=== PATIENT | female | born 1950 | race Caucasian/White ===

== ENCOUNTER 2016-08-05 03:57 | Observation (INO) | payer BC, MEDICARE ==
[2016-08-05] MEDS ORDERED: ASPIRIN 81 MG CHEW PO STA (04:18)
[2016-08-05] MEDS: NITROGLYCERIN SL TABS 0.4 MG TAB SUBLINGUAL STA ×2 (04:28→04:37)
[2016-08-05 04:31] LABS: Basophils % (A) 1 %; CH 33.6; CHCM 37.1; Eosinophils # (A) 0.3 k/uL (0-0.7); Eosinophils % (A) 6 %; HCT 41.8 % (34.0-46.0); HDW 2.96; HGB 14.8 gm/dL (11.4-16.0); Luc # (Auto) 0.16; Luc % (Auto) 4; Lymphocytes # (A) 1.9 k/uL (1.0-4.8); Lymphocytes % (A) 44 %; MCH 32.1 pg (25.0-35.0); MCHC 35.3 g/dL (31.0-37.0); MCV 90.9 fL (80.0-100.0); Mean Platelet Volume 7.3; Monocytes # (A) 0.3 k/uL (0-1.0); Monocytes % (A) 7 %; Neutrophils # (A) 1.6 k/uL (1.3-7.7); Neutrophils % (A) 38 %; RBC 4.59 m/uL (3.80-5.40); RDW 13.1 % (11.5-15.5); WBC 4.3 k/uL (3.8-10.6); WBC (Perox) 4.23
[2016-08-05 04:40] LABS: ALT 32 U/L (9-52); AST 24 U/L (14-36); Alkaline Phosphatase 120 U/L (38-126); Amylase 78 U/L (30-110); Anion Gap 9 mmol/L; Blood Urea Nitrogen 24 mg/dL (7-17); Calcium 9.3 mg/dL (8.4-10.2); Carbon Dioxide 24 mmol/L (22-30); Chloride 109 mmol/L (98-107); Glucose 94 mg/dL (74-99); Magnesium 2.1 mg/dL (1.6-2.3); Non-African American GFR(MDRD) >60 (>60 ml/min/1.73 sqM); Potassium 3.7 mmol/L (3.5-5.1); Sodium 142 mmol/L (137-145); Total Bilirubin 0.5 mg/dL (0.2-1.3); Total Protein 6.5 g/dL (6.3-8.2)
[2016-08-05 04:43] LABS: INR 1.1 (<1.1)
[2016-08-05 04:44] LABS: Partial Thromboplastin Time 23.1 sec (22.0-30.0); Prothrombin Time 10.7 sec (9.0-12.0)
--- NOTE | 2016-08-05 04:55 | ED ---
Chest Pain HPI - General Chief Complaint: Chest Pain Stated Complaint: chest pain Time Seen by Provider: 08/05/16 04:00 Source: patient, EMS, RN notes reviewed Mode of arrival: EMS Limitations: no limitations - History of Present Illness Initial Comments: This is a 66-year-old female who states she had the onset 2 days ago of midsternal burning and pressure-like discomfort that was intermittent now seems be getting worse she currently states she has 5/10 pain she states it was getting worse when she laid on the right side she denies any fevers chills nausea vomiting sweats or other symptoms with it. She has no prior history of known heart or lung disease. She does not think she is ever had an ulcer. She does states she took aspirin yesterday but none today. She has no other complaints at this time. MD Complaint: chest pain, other - Related Data Allergies Allergy/AdvReac Type Severity Reaction Status Date / Time adhesive tape Allergy Rash/Hives Verified 08/05/16 04:02 Review of Systems ROS Statement: Those systems with pertinent positive or pertinent negative responses have been documented in the HPI. ROS Other: All systems not noted in ROS Statement are negative. EKG Findings - EKG Results: EKG: interpreted by DAY, sinus rhythm (EKG shows normal sinus rhythm of 74 CO interval 146 QRS duration 72 QT/QTC of 420/[address]-T wave configuration.) Past Medical History Past Medical History: Hypertension History of Any Multi-Drug Resistant Organisms: None Reported Past Surgical History: Orthopedic Surgery, Tubal Ligation Past Psychological History: No Psychological Hx Reported Smoking Status: Never smoker Past Alcohol Use History: None Reported Past Drug Use History: None Reported General Exam - General Exam Comments Initial Comments: This is a well-developed well-nourished awake alert oriented 3 female Limitations: no limitations General appearance: alert, in no apparent distress Head exam: Present: atraumatic, normocephalic, normal inspection Eye exam: Present: normal appearance, PERRL, EOMI. Absent: scleral icterus, conjunctival injection, periorbital swelling ENT exam: Present: normal exam, mucous membranes moist Neck exam: Present: normal inspection. Absent: tenderness, meningismus, lymphadenopathy Respiratory exam: Present: normal lung sounds bilaterally, chest wall tenderness. Absent: respiratory distress, wheezes, rales, rhonchi, stridor Cardiovascular Exam: Present: regular rate, normal rhythm, normal heart sounds. Absent: systolic murmur, diastolic murmur, rubs, gallop, clicks GI/Abdominal exam: Present: soft, normal bowel sounds. Absent: distended, tenderness, guarding, rebound, rigid Extremities exam: Present: normal inspection, full ROM, normal capillary refill. Absent: tenderness, pedal edema, joint swelling, calf tenderness Back exam: Present: normal inspection Neurological exam: Present: alert, oriented X3, CN II-XII intact Psychiatric exam: Present: normal affect, normal mood Skin exam: Present: warm, dry, intact, normal color. Absent: rash Course Vital Signs 08/05/16 08/05/16 08/05/16 04:02 04:28 04:36 Temperature 97.6 F Pulse Rate 73 71 69 Respiratory 16 18 18 Rate Blood Pressure 167/88 150/77 133/73 O2 Sat by Pulse 97 96 96 Oximetry 08/05/16 08/05/16 04:43 05:55 Temperature 97.5 F L Pulse Rate 65 60 Respiratory 18 19 Rate Blood Pressure 123/74 122/71 O2 Sat by Pulse 96 96 Oximetry - Reevaluation(s) Reevaluation #1: 08/05/16 06:44 Patient did get relief of the pain after oxygen and nitroglycerin were administered. Chest Pain MDM - MDM I did review the x-ray report no acute findings I did discuss the findings with the patient and family as well as with the admitting physician. The presentation is consistent with unstable angina. Patient be placed on IV heparin nitro admission orders were done. Patient be consulted Critical Care Time Critical Care Time: Yes Critical Care Time: 31 minutes of critical care time which includes initial presentation with history physical labs x-rays reevaluation the patient response to therapy. Discussed with patient and attending physician admission orders documentation the above. Disposition Clinical Impression: Unstable angina pectoris, Chest pain Disposition: ADMITTED IP TO THIS [facility] Condition: Stable
[2016-08-05 05:09] LABS: Creatine Kinase 49 U/L (30-135)
--- NOTE | 2016-08-05 05:20 | XR ---
EXAM: XR Chest, 2 Views. CLINICAL HISTORY: Reason: Chest Pain TECHNIQUE: Frontal and lateral views of the chest. COMPARISON: No relevant prior studies available. FINDINGS: Lungs: Unremarkable. No consolidation. Pleural space: Unremarkable. No pneumothorax. Heart: Unremarkable. No cardiomegaly. Mediastinum: Unremarkable. Bones/joints: Mild degenerative changes throughout. Tubes, lines and devices: Multiple EKG wires and leads overlie the chest. Upper abdomen: Mild anterior elevation or eventration of both diaphragms. IMPRESSION: No acute process seen within the chest.
[2016-08-05 05:22] LABS: Creatine Kinase MB 0.6 ng/mL (0.0-2.4); Troponin I <0.012 ng/mL (0.000-0.034)
[2016-08-05] MEDS ORDERED: HEPARIN SODIUM,PORCINE 5,000 UNIT/ML 1 ML VIAL IV ONE (06:46)
[2016-08-05] MEDS ORDERED: NITROGLYCERIN SL TABS 0.4 MG TAB SUBLINGUAL PRN (06:46)
[2016-08-05] MEDS ORDERED: SODIUM CHLORIDE 0.9% 1,000 ML IV SCH (07:00)
[2016-08-05] MEDS ORDERED: HEPARIN SODIUM,PORCINE/D5W PMX 25,000 UNIT in DEXTROSE/WATER 1 500ML.BAG IV SCH (07:00)
--- NOTE | 2016-08-05 09:10 | P.CRDCN ---
History of Present Illness Consult date: 08/05/16 History of present illness: This is Dr. Benjamin dictating a consultation on Mrs. Elizabeth. This is a 66- year-old female otherwise healthy person who has been experiencing some tight feeling in the chest intermittently for the last couple of days. The pain seemed to be more so at night. The night before admission patient took Mylanta with relief and was able to go to sleep. Last night patient could not go to sleep and came to the emergency room. Apparently she was treated with sublingual nitroglycerin with relief of pain. Patient is very comfortable this morning. Her EKG did not reveal any acute changes. Cardiac enzymes have been negative. Patient doesn't have any previous cardiac history. She did have a stress test in 2014 that was negative. Patient is being scheduled for a stress Cardiolite study this morning. Patient is also known to have echocardiogram. Patient can be discharged home with a stress test is negative. Follow-up in the office Review of Systems REVIEW OF SYSTEMS: CONSTITUTIONAL:. Patient is doing well. No complaints of fever or chills EYES: Denies diplopia, blurring of vision EARS, NOSE, MOUTH, THROAT: Denies headaches, denies sore throat. CARDIOVASCULAR: As per the chart RESPIRATORY: Denies shortness of breath, denies cough. GASTROINTESTINAL: Denies change in appetite, denies abdominal pain, denies diarrhea GENITOURINARY: Denies hematuria, denies infections. MUSKULOSKELETAL: Denies pain, denies swelling. Denies any cramps or claudication INTEGUMENTARY: Denies rash, denies eczema. NEUROLOGICAL: Denies focal weakness, or visual disturbance. Denies any dizziness or syncope PSYCHIATRIC: Denies anxiety, denies depression. HEMATOLOGIC/LYMPHATIC: Denies any bleeding, denies enlarged lymph nodes. Past Medical History Past Medical History: GERD/Reflux, Hypertension, Osteoarthritis (OA) Additional Past Medical History / Comment(s): Arthritis in neck, back and hands , difficulty with sleep. History of Any Multi-Drug Resistant Organisms: None Reported Past Surgical History: Orthopedic Surgery, Tubal Ligation Additional Past Surgical History / Comment(s): Bilateral carpal tunnel releases , R little toe bone removed, colonoscopy-normal, D&Cs. Past Anesthesia/Blood Transfusion Reactions: No Reported Reaction Past Psychological History: No Psychological Hx Reported Additional Psychological History / Comment(s): Pt resides with her spouse. She is independent. Smoking Status: Never smoker Past Alcohol Use History: None Reported Past Drug Use History: None Reported - Past Family History Father Family Medical History: Congestive Heart Failure (CHF), Hypertension Additional Family Medical History / Comment(s): Father of CHF at the age of 69yrs. Mother Family Medical History: Cancer, Hypertension Additional Family Medical History / Comment(s): Mother of pancreatic cancer at the age of 67yrs. Medications and Allergies Home Medications Medication Instructions Recorded Confirmed Type Ascorbic Acid [Vitamin C] 500 mg PO AC-LUNCH 08/05/16 08/05/16 History Biotin 5 mg PO AC-LUNCH 08/05/16 08/05/16 History Calcium/Magnesium/Zinc 1 tab PO AC-LUNCH 08/05/16 08/05/16 History [Frdxfrv-Qwoxnhgkj-Wsav Tablet] Cholecalciferol [Vitamin D3] 1,000 unit PO AC-LUNCH 08/05/16 08/05/16 History Furosemide [Lasix] 20 mg PO DAILY 08/05/16 08/05/16 History Ibuprofen [Motrin] 800 mg PO TID PRN 08/05/16 08/05/16 History Losartan Potassium [Losartan 100 mg PO DAILY 08/05/16 08/05/16 History Potassium] Metoprolol Tartrate [Metoprolol 25 mg PO DAILY 08/05/16 08/05/16 History Tartrate] Multivitamins, Thera [Multivitamin 1 tab PO DAILY 08/05/16 08/05/16 History (formulary)] Ubidecarenone [Co Q-10] 100 mg PO AC-LUNCH 08/05/16 08/05/16 History Vitamin B Complex 1 cap PO AC-LUNCH 08/05/16 08/05/16 History Allergies Allergy/AdvReac Type Severity Reaction Status Date / Time adhesive tape Allergy Rash/Hives Verified 08/05/16 06:58 Physical Exam GENERAL EXAM: Patient is alert and oriented and doesn't appear to be in any acute distress HEENT: Normocephalic. Normal reaction of pupils, equal size, normal range of extraocular motion. No erythema or exudates in the throat. NECK: No masses, no nuchal rigidity. CHEST: No chest wall deformity. LUNGS: Equal air entry with no crackles or wheeze. HEART: S1 and S2 normal with no audible mumurs or gallops. Regular rhythm, femorals equal on both sides.. ABDOMEN: No hepatosplenomegaly, normal bowel sounds, no guarding or rigidity. SKIN: No rashes CENTRAL NERVOUS SYSTEM: No focal deficits. EXTREMITIES: No cyanosis, clubbing or edema. Results 08/05/16 04:20 08/05/16 04:20 Current Medications Generic Name Dose Route Start Last Admin Trade Name Freq PRN Reason Stop Dose Admin Aspirin 325 mg 08/06/16 09:00 Aspirin PO DAILY [facility] Heparin Sodium/Dextrose 25,000 500 mls @ 15.78 mls/hr 08/05/16 07:00 07:15 unit/ IV Solution IV 12.01 units/kg/hr .Q24H BARB 15.8 mls/hr Protocol Administration 12 UNITS/KG/HR Sodium Chloride 1,000 mls @ 20 mls/hr 08/05/16 07:00 08/05/16 07:15 Saline 0.9% IV 20 mls/hr .Q24H BARB Administration Nitroglycerin 1 inch 08/05/16 12:00 Nitro-Bid Oint TOPICAL Q6HR [facility] Nitroglycerin 0.4 mg 08/05/16 06:46 Nitrostat SUBLINGUAL Q5M PRN Chest Pain EKG Interpretations (text) Sinus rhythm Assessment and Plan (1) Hypertension Status: Acute (2) Chest pain Status: Acute Plan: Patient has recurrent chest pains with negative enzymes and EKGs. This morning patient is feeling better. We'll proceed with a stress Cardilate studies and echocardiogram. Further comminution depend upon the findings on the stress test
[2016-08-05 09:24] VITALS: RESP 16
--- NOTE | 2016-08-05 11:32 | EST ---
DATE OF SERVICE: 08/05/2016 AGE: 66Y SEX: F HT: 58" WT: 145 lbs. Protocol Patrick: X Other: Cardiolite Stress Stage: 2 Dur. of Exercise: 8:00 *Heart Rate Blood Pressure *Rest: 76 Rest: 164/68 * *Max. Achieved: 138 Maximum BP: 184/83 85% PMHR: 130 100% PMHR: 153 *METS: 9.1 INDICATIONS: Chest pain. MEDICATIONS: - CLINICAL INFORMATION: Patient admitted to the hospital with chest pain, hypertension and strong family history of coronary artery disease. Patient has been having chest pressure. Resting ECG shows sinus rhythm, rate of 76 beats per minute, ND interval of 0.16, QRS 0.08, normal ST-T waves. Utilizing a standard Patrick protocol, a symptom-limited treadmill test was performed. Patient exercised for total of 8 minutes reaching a peak heart of 138 beats per minute which is approximately 90% predicted maximal heart rate without any chest pain or pressure or ST-segment deviations indicative of ischemia. Patient did not report any symptoms throughout the study and no cardiac arrhythmias are noted. IMPRESSION: 1. Baseline rhythm is sinus with normal ND interval, normal QRS and normal ST-T waves. 2. Negative exercise treadmill test at 90% predicted maximal heart rate. 3. Nuclear scintigrams to follow from Radiology Department.
--- NOTE | 2016-08-05 11:39 | NM ---
EXAMINATION TYPE: NM stress cardiolite complete DATE OF EXAM: 08/05/2016 11:01 AM COMPARISON: Previous exam dated December 2014 HISTORY: Chest pain TECHNIQUE: After the intravenous administration of 10.4 mCi Tc 99m Sestamibi - Rest images obtained 40 minutes post injection. The patient exercised using a ISSA protocol and 1 minute prior to peak exercise was injected with 26.7 mCi Tc 99m Sestamibi - Stress images obtained 15 minutes post injecti on. FINDINGS: Targeted heart rate was achieved during performance of the study. Review of stress and rest SPECT katerin ges demonstrates no distinct perfusion abnormality. Gated analysis shows normal wall motion with an estimated left ventricular ejection fraction of 49 %. IMPRESSION: No scintigraphic evidence for reversible ischemia. Interval change in patient's cardiac ejection frac tion.
[2016-08-05] MEDS ORDERED: NITROGLYCERIN OINT 1 INCH/GM PACKET TOPICAL SCH (12:00)
--- NOTE | 2016-08-05 12:10 | ECHOF ---
Referral Reason:Chest pain and cardiomyopathy MEASUREMENTS -------- HEIGHT: 147.3 cm WEIGHT: 65.8 kg BP: 122/71 RVIDd: 2.3 cm (< 3.3) IVSd: 1.0 cm (0.6 - 1.1) LVIDd: 3.9 cm (3.9 - 5.3) LVPWd: 1.0 cm (0.6 - 1.1) IVSs: 1.5 cm LVIDs: 2.7 cm LVPWs: 1.4 cm LA Diam: 3.0 cm (2.7 - 3.8) LAESV Index (A-L): 15.55 ml/m Ao Diam: 2.7 cm (2.0 - 3.7) AV Cusp: 1.7 cm (1.5 - 2.6) MV EXCURSION: 12.408 mm (> 18.000) MV EF SLOPE: 42 mm/s (70 - 150) EPSS: 0.3 cm MV E Octavio: 0.88 m/s MV DecT: 231 ms MV A Octavio: 1.06 m/s MV E/A Ratio: 0.84 FINDINGS -------- Sinus rhythm. This was a technically adequate study. The left ventricular size is normal. Left ventricular wall thickness is normal. Overall left ventricular systolic function is normal with, an EF between 60 - 65 %. The right ventricle is normal in size and function. Normal LA size by volume 22+/-6 ml/m2. The right atrium is normal in size. The aortic valve is trileaflet and appears structurally normal. The mitral valve is normal. Trace tricuspid regurgitation present. The pulmonic valve was not well visualized. The aortic root size is normal. Normal inferior vena cava with normal inspiratory collapse consistent with estimated right atrial pressure of 5 mmHg. There is no pericardial effusion. CONCLUSIONS -------- 1. Sinus rhythm. 2. The mitral valve is normal. 3. Trace tricuspid regurgitation present. 4. The pulmonic valve was not well visualized. 5. The aortic root size is normal. 6. Normal inferior vena cava with normal inspiratory collapse consistent with estimated right atrial pressure of 5 mmHg. 7. There is no pericardial effusion. 8. This was a technically adequate study. 9. The left ventricular size is normal. 10. Left ventricular wall thickness is normal. 11. Overall left ventricular systolic function is normal with, an EF between 60 - 65 %. 12. The right ventricle is normal in size and function. 13. Normal LA size by volume 22+/-6 ml/m2. 14. The right atrium is normal in size. 15. The aortic valve is trileaflet and appears structurally normal. DRAWER IN HAND: Fariba Cantu RDCS
[2016-08-05 12:12] LABS: Creatine Kinase 51 U/L (30-135)
[2016-08-05 12:26] LABS: Creatine Kinase MB 0.6 ng/mL (0.0-2.4); Troponin I <0.012 ng/mL (0.000-0.034)
[2016-08-05 12:46] VITALS: BP 146/73; PULSE 68; TEMP 98.7
--- NOTE | 2016-08-05 15:03 | HP ---
DATE OF ADMISSION: 08/05/2016 PRESENTING COMPLAINT: Burning pressure. HISTORY OF PRESENTING COMPLAINT: This is a very pleasant 66-year-old patient of Dr. De La Cruz whose chronic stable medical conditions include GERD, hypertension, osteoarthritis, difficulty sleeping, has been having pressure like a burning sensation in the chest and also like a deep pressure at rest for variable periods of time. There is no shortness of breath. No perspiration, no dizziness. No radiation, concern for a cardiac cause. Admitted with a diagnosis of unstable angina. REVIEW OF SYSTEMS: CONSTITUTIONAL: None. HEENT: None. RESPIRATORY: None. CARDIOVASCULAR: As above. GASTROINTESTINAL: Heartburn. The above symptoms do feel different than heartburn. GENITOURINARY: None. MUSCULOSKELETAL: Pain in multiple joints. DERMATOLOGICAL: None. HEMATOLOGICAL: None. LYMPHATIC: None. PSYCHIATRY: None. NEUROLOGICAL: None. PAST HISTORY: GERD, hypertension, osteoarthritis especially neck, back and hands, insomnia. PAST SURGICAL HISTORY: Tubal ligation, bilateral carpal tunnel release. SOCIAL HISTORY: . Does not smoke. No alcohol. FAMILY HISTORY: Father of CHF at the age of 69, hypertension. HOME MEDICATIONS: 1. Vitamin B complex 1 capsule p.o. at lunch. 2. Motrin 800 mg t.i.d. p.r.n. 3. Biotin 5 mg p.o. with lunch. 4. Co Q-10 one hundred mg p.o. with lunch. 5. Calcium/magnesium/zinc supplement. 6. Lasix 20 mg daily. 7. Vitamin C 500 mg with lunch. 8. Metoprolol 25 mg p.o. daily. 9. Losartan 100 mg p.o. daily. 10. Vitamin D3 one thousand units p.o. with lunch. Allergies to ADHESIVE TAPE. On examination, temperature 98.2, pulse 62, respirations 16, blood pressure 140/86, pulse ox 97% on room air. GENERAL APPEARANCE: Well built, BMI of 31, sitting on the chair, not in distress. EYES: Pupils equal, conjunctivae normal. HEENT: Oral cavity normal. NECK: JVD not raised. Mass not palpable. Respiratory effort normal. Lungs are clear. CARDIOVASCULAR: First and second sounds normal. No edema. ABDOMEN: Soft, nontender. Liver and spleen not palpable. LYMPHATIC: No lymph node palpable in neck or axillae. PSYCHIATRY: Alert and oriented x3. Mood and affect normal. NEUROLOGICAL: Cranial nerves grossly intact. Power and sensation grossly intact. MUSCULOSKELETAL: ( ) especially in the hands and knees. INVESTIGATIONS: White count 4.3, hemoglobin 14.8, potassium 3.7. BUN 24, creatinine 0.80, troponin x2 are negative. EKG normal sinus rhythm, nonspecific ST-T changes. ASSESSMENT: 1. Possible unstable angina, risk factor is due to hypertension, age. 2. Gastroesophageal reflux disease. 3. Primary osteoarthritis of multiple joints, bilaterally. 4. Essential hypertension. 5. Chronic insomnia, idiopathic. 6. Obesity, body mass index of 31.4. PLAN: Patient started on aspirin, IV heparin, nitro paste. Cardiology was consulted, ordered a stress test. Care was discussed with the patient.
[2016-08-06] MEDS ORDERED: ASPIRIN 325 MG TAB PO SCH (09:00)
--- NOTE | 2016-08-09 20:30 | DS ---
DATE OF ADMISSION: 08/05/2016 DATE OF DISCHARGE: 08/05/2016 FINAL DIAGNOSIS(ES): 1. Possible unstable angina, risk factors including hypertension and age. 2. Gastroesophageal reflux disease. 3. Primary osteoarthritis in multiple joints bilaterally. 4. Essential hypertension. 5. Chronic insomnia, idiopathic. 6. Obesity, body mass index of 31.4. CONSULTATION: Dr. Benjamin from Cardiology. HOSPITAL COURSE: This patient presented with chest burning sensation. Patient had a Cardiolite stress test that was unremarkable. 2-D echo showed preserved LV function and troponin was negative. Because of presentation, patient has been put on Imdur. DISCHARGE MEDICATIONS: 1. Vitamin C 500 mg at lunch. 2. Biotin 5 mg at lunch. 3. Calcium, magnesium, zinc 1 tablet p.o. with lunch. 4. Lasix 20 mg p.o. daily. 5. Imdur ER 30 mg p.o. daily. 6. Losartan 100 mg p.o. q.h.s. 7. Metoprolol 25 mg p.o. daily. 8. Multivitamin 1 tablet p.o. daily. 9. Nitrostat 0.4 sublingual q.5 p.r.n. 10. Prilosec 20 mg with breakfast. 11. CoQ10 100 mg p.o. with lunch. 12. Vitamin B complex 1 capsule p.o. with lunch. Follow-up with Dr. De La Cruz in 1 to 2 days, follow-up with Dr. Benjamin on 08/19/2016. LUNGS: Clear. CARDIOVASCULAR: First and second sounds normal.
== END 2016-08-05 15:50 | disposition home or self-care (01) ==
LOC: EC 03:57 → 3OBS 06:48
PROVIDERS: ADMIT Hospitalist; ATTEND Hospitalist
DX: R07.9 Chest pain, unspecified (principal); I10 Essential (primary) hypertension; K21.9 Gastro-esophageal reflux disease without esophagitis; M15.9 Polyosteoarthritis, unspecified; E66.9 Obesity, unspecified; Z68.31 Body mass index [BMI] 31.0-31.9, adult; F51.04 Psychophysiologic insomnia; Z79.899 Other long term (current) drug therapy
CPT/HCPCS: 96376 ×2; 99291 ×2; 36415; 93005; 93017; 93306; 85379; 83880; 80053; 82150; 82550; 82553; 83690; 83735; 84484; 85025; 85610; 85730; 71020; 78452; 96374; G0378; A9500; J1644 ×2

== ENCOUNTER → 2017-02-24 | Outpatient (CLI) | payer BC ==
--- NOTE | 2017-02-28 09:02 | MM ---
Reason for exam: screening (asymptomatic). Last mammogram was performed 1 year and 1 month ago. History: Patient is postmenopausal. Physical Findings: A clinical breast exam by your physician is recommended on an annual basis and results should be correlated with mammographic findings. MG Screening Mammo w CAD Bilateral CC and MLO view(s) were taken. Prior study comparison: February 03, 2016, bilateral MG 3d screening mammo w/cad. January 31, 2015, bilateral MG screening mammo w CAD. The breast tissue is heterogeneously dense. This may lower the sensitivity of mammography. No suspicious abnormality. No significant changes when compared with prior studies. ASSESSMENT: Negative, BI-RAD 1 RECOMMENDATION: Routine screening mammogram of both breasts in 1 year.
== END | disposition home or self-care (01) ==
LOC: RADMAMWWP 15:52
PROVIDERS: ATTEND Family Medicine
DX: Z12.31 Encounter for screening mammogram for malignant neoplasm of breast (principal)

== ENCOUNTER → 2018-02-01 | Outpatient (CLI) | payer BC ==
--- NOTE | 2018-02-01 15:02 | US ---
EXAMINATION TYPE: US pelvic complete DATE OF EXAM: 02/01/2018 COMPARISON: NONE CLINICAL HISTORY: Pelvic Pain R10.2. Left pelvic pain, 4, para 3, miscarriage 1, history of t ubal ligation. TECHNIQUE: . Transabdominal sonographic images of the pelvis were acquired. Transvaginal sonographi c images were medically necessary to better assess the following anatomy: endometrium and ovaries Date of LMP: 10 years ago EXAM MEASUREMENTS: Uterus: 8.4 x 2.7 x 4.3 cm Endometrial Stripe: 0.5 cm Right Ovary: not seen Left Ovary: not seen 1. Uterus: anteverted, heterogeneous, 0.7 x 0.6 x 0.8cm calcified area fundus 2. Endometrium: wnl 3. Right Ovary: not seen due to overlying bowel gas 4. Left Ovary: not seen due to overlying bowel gas 5. Bilateral Adnexa: wnl 6. Posterior cul-de-sac: wnl Markedly heterogeneous uterus with fundal 8 mm calcification favor dystrophic. Endometrium not well i dentified suspected atrophic. No free fluid in pelvic cul-de-sac. Neither ovary clearly seen. No suspicious adnexal lesions are present on images saved. IMPRESSION: No suspicious abnormality identified.
== END ==
LOC: RADUSWWP 13:01
PROVIDERS: ATTEND Family Medicine
DX: R10.32 Left lower quadrant pain (principal)
CPT/HCPCS: 76830; 76856

== ENCOUNTER → 2018-03-01 | Outpatient (CLI) | payer BC ==
--- NOTE | 2018-03-02 10:36 | CT ---
EXAMINATION TYPE: CT abdomen pelvis w con DATE OF EXAM: 03/01/2018 HISTORY: LLQ pain and hematuria X [address] DLP: 1056mGycm Automated Exposure Control for Dose Reduction was Utilized. CONTRAST: CT scan of the abdomen and pelvis is performed with IV Contrast, patient injected with 100 mL of Isov ue 300. COMPARISON: None. FINDINGS: LUNG BASES: Multiple areas of pleural-parenchymal scarring are seen on the right. Few areas of very m ild pleural thickening are also seen posteriorly on the right. LIVER/GB: Liver is unremarkable in enhancement. No intrahepatic biliary ductal dilatation. No choleli thiasis. PANCREAS: No significant abnormality is seen. No ductal dilatation. SPLEEN: No significant abnormality is seen. No splenomegaly. ADRENALS: No nodule or thickening. KIDNEYS: There is moderate left-sided hydroureteronephrosis secondary to a 5 mm proximal obstructing left ureteral calculus. The kidneys enhance symmetrically and there is no current alteration of renal function. This calculus is at the level of the L2-L3 disc interspace. Too small to accurately characterize bilateral lower pole renal lesions that are hypoattenuated are s een, statistically cysts although again too small to characterize. BOWEL: Mild amount retained colonic stool is seen limiting evaluation of bowel as does lack of oral c ontrast. Appendix is air-filled and within normal limits of size. UTERUS/ADNEXA: Calcified degenerative uterine leiomyoma is noted. LYMPH NODES: No greater than 1cm abdominal or pelvic lymph nodes are appreciated. OSSEOUS STRUCTURES: Multilevel degenerative change of the spine is present IMPRESSION: 5 mm obstructing calculus within the proximal left ureter creating moderate left hydrour eteronephrosis. Findings were communicated with the ordering providers office ([place]) by Dr. Penny on 03/02/2018 at 10:29 AM.
== END | disposition home or self-care (01) ==
LOC: RADCTMAIN 16:39
PROVIDERS: ATTEND Physician Assistant
DX: N13.2 Hydronephrosis with renal and ureteral calculous obstruction (principal)
CPT/HCPCS: 74177; Q9967

== ENCOUNTER → 2018-03-03 | Outpatient (CLI) | payer MEDICARE, BC ==
[2018-03-03 16:04] LABS: Basophils % (A) 1 %; Eosinophils # (A) 0.3 k/uL (0-0.7); Eosinophils % (A) 5 %; HCT 42.2 % (34.0-46.0); HGB 14.7 gm/dL (11.4-16.0); Lymphocytes # (A) 1.7 k/uL (1.0-4.8); Lymphocytes % (A) 30 %; MCH 32.4 pg (25.0-35.0); MCHC 34.8 g/dL (31.0-37.0); MCV 93.2 fL (80.0-100.0); Mean Platelet Volume 7.4; Monocytes # (A) 0.4 k/uL (0-1.0); Monocytes % (A) 7 %; Neutrophils # (A) 3.1 k/uL (1.3-7.7); Neutrophils % (A) 56 %; Platelet Count 234 k/uL (150-450); RBC 4.53 m/uL (3.80-5.40); RDW 13.3 % (11.5-15.5); WBC 5.6 k/uL (3.8-10.6)
[2018-03-03 16:05] LABS: Appearance,Urine Clear (Clear); Bilirubin,Urine Negative (Negative); Blood,Urine Negative (Negative); Color,Urine Yellow; Glucose,Urine (UA) Negative (Negative); Ketones,Urine Negative (Negative); Leukocyte Esterase,Urine Moderate (Negative); Mucus,Urine Rare /hpf; Nitrite,Urine Negative (Negative); Protein,Urine Negative (Negative); RBC,Urine 1 /hpf (0-5); Specific Gravity,Urine 1.012 (1.001-1.035); Squamous Epithelial Cell,Urine 1 /hpf (0-4); Urobilinogen,Urine <2.0 mg/dL (<2.0); WBC,Urine 8 /hpf (0-5)
[2018-03-03 16:15] LABS: Potassium 3.9 mmol/L (3.5-5.1)
== END | disposition home or self-care (01) ==
LOC: LABPAT 15:20
PROVIDERS: ATTEND Urology
DX: Z01.812 Encounter for preprocedural laboratory examination (principal); N13.2 Hydronephrosis with renal and ureteral calculous obstruction
CPT/HCPCS: 80051; 81001; 82565; 84520; 85025

== ENCOUNTER 2018-03-06 08:26 | Day surgery (SDC) | payer BC ==
--- NOTE | 2018-03-05 19:29 | P.GSCN ---
History of Present Illness Consult date: 03/05/18 History of present illness: 67 yo female with 9 mm proximal left ureteral stone who comes for eswl lt. He has had pain for 6 weeks He has been given a variety of options of treatments Review of Systems All systems: negative Past Medical History Past Medical History: GERD/Reflux, Hypertension, Osteoarthritis (OA) Additional Past Medical History / Comment(s): Arthritis in neck, back and hands , difficulty with sleep. History of Any Multi-Drug Resistant Organisms: None Reported Past Surgical History: Orthopedic Surgery, Tubal Ligation Additional Past Surgical History / Comment(s): Bilateral carpal tunnel releases , R little toe bone removed, colonoscopy-normal, D&Cs. Past Anesthesia/Blood Transfusion Reactions: No Reported Reaction Past Psychological History: No Psychological Hx Reported Additional Psychological History / Comment(s): Pt resides with her spouse. She is independent. Smoking Status: Never smoker Past Alcohol Use History: None Reported Past Drug Use History: None Reported - Past Family History Father Family Medical History: Congestive Heart Failure (CHF), Hypertension Additional Family Medical History / Comment(s): Father of CHF at the age of 69yrs. Mother Family Medical History: Cancer, Hypertension Additional Family Medical History / Comment(s): Mother of pancreatic cancer at the age of 67yrs. Medications and Allergies Home Medications Medication Instructions Recorded Confirmed Type Ascorbic Acid [Vitamin C] 500 mg PO AC-LUNCH 08/05/16 08/05/16 History Biotin 5 mg PO AC-LUNCH 08/05/16 08/05/16 History Calcium/Magnesium/Zinc 1 tab PO AC-LUNCH 08/05/16 08/05/16 History [Ufkbfgi-Sivpppfcs-Gbee Tablet] Cholecalciferol [Vitamin D3] 1,000 unit PO AC-LUNCH 08/05/16 08/05/16 History Furosemide [Lasix] 20 mg PO DAILY 08/05/16 08/05/16 History Isosorbide Mononitrate ER [Imdur] 30 mg PO DAILY #30 tab 08/05/16 Rx Losartan Potassium 100 mg PO HS #0 08/05/16 08/05/16 Rx Metoprolol Tartrate 25 mg PO DAILY 08/05/16 08/05/16 History Multivitamins, Thera [Multivitamin 1 tab PO DAILY 08/05/16 08/05/16 History (formulary)] Nitroglycerin Sl Tabs [Nitrostat] 0.4 mg SUBLINGUAL Q5M PRN #25 tab 08/05/16 Rx Omeprazole [PriLOSEC] 20 mg PO AC-BRKFST #30 cap 08/05/16 Rx Ubidecarenone [Co Q-10] 100 mg PO AC-LUNCH 08/05/16 08/05/16 History Vitamin B Complex 1 cap PO AC-LUNCH 08/05/16 08/05/16 History Allergies Allergy/AdvReac Type Severity Reaction Status Date / Time adhesive tape Allergy Rash/Hives Verified 08/05/16 06:58 Surgical - Exam - General well developed, well nourished - Eyes PERRL - ENT no hearing loss - Neck trachea midline - Respiratory normal expansion, normal respiratory effort - Cardiovascular Rhythm: regular - Abdomen Abdomen: non tender - Integumentary no rash, no growths - Neurologic normal coordination, normal sensation - Musculoskeletal normal gait, normal posture - Psychiatric oriented to time, oriented to person, oriented to place, speech is normal, memory intact Assessment and Plan Assessment: Impression: Left proximal ureteral stone Plan" Eswl left
[~2018-03-06 08:26] MED LIST: LACTATED RINGERS 1,000 ML IV SCH
--- NOTE | 2018-03-06 09:29 | XR ---
Abdomen HISTORY: Left kidney stone Frontal view of the abdomen submitted on a single image and correlated to CT abdomen pelvis 8 There is an oval calcification at the left paraspinal location measuring 6 mm as noted on CT. Multipl e calcifications are present within the pelvis compatible with phleboliths. Lung bases are not includ ed on exam. Partial sacralization noted at the lowest lumbar level. Uterine calcification present in the right hemipelvis. IMPRESSION: Proximal left ureteral calculus.
[2018-03-06 09:40] VITALS: RESP 16; TEMP 98.2
[2018-03-06] MEDS ORDERED: LIDOCAINE 1% 20 ML VIAL (10MG/ML) FOR IV START INTRADERMA ONE (09:45)
[2018-03-06] MEDS ORDERED: LIDOCAINE 1% INJ 10MG/ML (20 ML MDV) ONE (10:45)
[2018-03-06] MEDS ORDERED: MIDAZOLAM 2 MG/2 ML VIAL ONE (10:45)
[2018-03-06] MEDS ORDERED: fentaNYL (PF) 50 MCG/ML 2 ML AMP ONE (10:45)
[2018-03-06] MEDS ORDERED: PROPOFOL 10 MG/ML 20 ML VIAL IV ONE (10:45)
--- NOTE | 2018-03-06 11:01 | P.OP ---
Date of Procedure: 03/06/18 Preoperative Diagnosis: Left ureteral calculus Postoperative Diagnosis: Same Procedure(s) Performed: ESWL left 1000 shocks at energy level IV Anesthesia: MAC Surgeon: Bryant Singleton Pathology: none sent Condition: stable Disposition: PACU Indications for Procedure: The patient is 67. She has a 7 mm proximal ureteral stone causing pain she comes for shockwave lithotripsy Description of Procedure: The patient is brought to the operating suite. She is given a successful sedative anesthetic on the lithotripsy table. The left ureteral stone was identified. Thousand shocks at energy level IV is administered. The stone breaks nicely. The patient is awake and returned recovery in good condition. She'll be discharged home upon recovery and found the office in one week.
[2018-03-06 11:30] VITALS: BP 124/71; PULSE 63
== END 2018-03-06 11:58 | disposition home or self-care (01) ==
LOC: ORWHC2ENDO 08:26
PROVIDERS: ATTEND Urology
DX: N20.1 Calculus of ureter (principal); K21.9 Gastro-esophageal reflux disease without esophagitis; I10 Essential (primary) hypertension; M19.90 Unspecified osteoarthritis, unspecified site; Z80.0 Family history of malignant neoplasm of digestive organs; Z79.899 Other long term (current) drug therapy; Z91.09 Other allergy status, other than to drugs and biological substances; I50.9 Heart failure, unspecified; I20.9 Angina pectoris, unspecified
CPT/HCPCS: 74018; 50590; J2250; J2001; J3010; J2704

== ENCOUNTER → 2019-11-09 | Outpatient (CLI) | payer BC ==
--- NOTE | 2019-11-09 14:55 | XR ---
EXAMINATION TYPE: XR knee complete LT DATE OF EXAM: 11/09/2019 COMPARISON: NONE HISTORY: Pain TECHNIQUE: Three views are submitted. FINDINGS: Joint spaces are preserved. Osseous structures are intact. No acute fracture seen. Small amount of fluid in the suprapatellar bursa. IMPRESSION: 1. No acute fracture or dislocation.
--- NOTE | 2019-11-09 14:57 | XR ---
EXAMINATION TYPE: XR Hip Bilateral and AP pelvis DATE OF EXAM: 11/09/2019 COMPARISON: NONE HISTORY: Pain TECHNIQUE: A single AP view of the pelvis is obtained. Two views of the bilateral hip are obtained. FINDINGS: There is no acute fracture/dislocation evident in the pelvis. The hip and sacroiliac join ts appear symmetric and unremarkable. The overlying soft tissue appears unremarkable. Two views of bilateral hip show no acute fracture or dislocation. There is hypertrophic change of the acetabulum. Calcifications the pelvis appear to be vascular. Degenerative change lower lumbar spine. Osteitis pubis condensans noted. IMPRESSION: 1. Degenerative change lower lumbar spine. 2. Mild hypertrophic changes of the acetabulum could be associated with femoral acetabular impingemen t correlate clinically.
== END | disposition home or self-care (01) ==
LOC: RADXRMAIN 13:53
PROVIDERS: ATTEND Nurse Practitioner Family
DX: M25.852 Other specified joint disorders, left hip (principal); M25.851 Other specified joint disorders, right hip; S89.92XA Unspecified injury of left lower leg, initial encounter
CPT/HCPCS: 73521

== ENCOUNTER → 2020-06-12 | Outpatient (CLI) | payer BC ==
--- NOTE | 2020-06-12 13:30 | XR ---
EXAMINATION TYPE: XR foot complete LT DATE OF EXAM: 06/12/2020 COMPARISON: NONE HISTORY: Pain TECHNIQUE: Three views are submitted. FINDINGS: The osseous structures are intact. There is no acute fracture or dislocation. Severe arthropathy f irst MTP. Hammertoe deformities noted. Benign cystic change involving the middle phalanx second digit and head of the first metatarsal. Correlate for bunion. Calcaneal spurs noted. IMPRESSION: 1. Hypertrophic arthropathy of the first MTP. 2. Plantar calcaneal spur.
== END | disposition home or self-care (01) ==
LOC: RADXRMAIN 13:09
PROVIDERS: ATTEND Family Medicine
DX: M77.32 Calcaneal spur, left foot (principal); M12.872 Other specific arthropathies, not elsewhere classified, left ankle and foot

== ENCOUNTER → 2020-08-15 | Outpatient (CLI) | payer BC ==
--- NOTE | 2020-08-18 11:24 | MM ---
Reason for exam: screening (asymptomatic). Last mammogram was performed 1 year and 4 months ago. History: Patient is postmenopausal. Physical Findings: A clinical breast exam by your physician is recommended on an annual basis and results should be correlated with mammographic findings. MG 3D Screening Mammo W/Cad Bilateral CC and MLO view(s) were taken. Prior study comparison: April 26, 2019, bilateral MG 3d screening mammo w/cad. February 27, 2018, bilateral MG 3d screening mammo w/cad. The breast tissue is heterogeneously dense. This may lower the sensitivity of mammography. There are benign appearing round calcifications bilaterally. There is no discrete abnormality. ASSESSMENT: Benign, BI-RAD 2 RECOMMENDATION: Routine screening mammogram of both breasts in 1 year.
== END | disposition home or self-care (01) ==
LOC: RADMAMWWP 13:42
PROVIDERS: ATTEND Family Medicine
DX: Z12.31 Encounter for screening mammogram for malignant neoplasm of breast (principal); Z78.0 Asymptomatic menopausal state
CPT/HCPCS: 77063; 77067

== ENCOUNTER → 2021-09-08 | Outpatient (CLI) | payer BC ==
--- NOTE | 2021-09-10 14:55 | MM ---
Reason for Exam: Screening (asymptomatic). Last mammogram was performed 1 year(s) and 1 month(s) ago. Patient History: Menarche at age 11. First Full-Term at age 24. Postmenopausal. Risk Values: Claudette 5 year model risk: 2.0%. NCI Lifetime model risk: 5.1%. Film Views: Bilateral CC views were taken. Bilateral MLO views were taken. Prior Study Comparison: 02/27/2018 Bilateral Screening Mammogram, [facility]. 04/26/2019 Bilateral Screening Mammogram, [facility]. 08/15/2020 Bilateral Screening Mammogram, [facility]. Tissue Density: The breast tissue is heterogeneously dense. This may lower the sensitivity of mammography. Findings: Analyzed By CAD. There is no suspicious group of microcalcifications or new suspicious mass in either breast. Overall Assessment: Benign, BI-RAD 2 Management: Screening Mammogram of both breasts in 1 year. A clinical breast exam by your physician is recommended on an annual basis and results should be correlated with mammographic findings. Electronically signed and approved by: Guanako Garcia M.D. Radiologis
== END | disposition home or self-care (01) ==
LOC: RADMAMWWP 13:15
PROVIDERS: ATTEND Family Medicine
DX: Z12.31 Encounter for screening mammogram for malignant neoplasm of breast (principal); Z78.0 Asymptomatic menopausal state
CPT/HCPCS: 77063; 77067

== ENCOUNTER → 2022-01-26 | Outpatient (CLI) | payer BC ==
--- NOTE | 2022-01-26 12:20 | US ---
EXAMINATION TYPE: US pelvic complete DATE OF EXAM: 01/26/2022 COMPARISON: CT dated 03/01/2018 & US 2018 CLINICAL HISTORY: R10.32 LLQ pain. Intermittent left pelvic pain x couple months, history of tubal li gation TECHNIQUE: . Transabdominal sonographic images of the pelvis were acquired. Transvaginal sonographi c images were medically necessary to better assess the following anatomy: endometrium and ovaries Date of LMP: 15+ years ago EXAM MEASUREMENTS: Uterus: 7.3 x 3.1 x 4.6 cm Endometrial Stripe: 0.4 cm Right Ovary: 2.4 x 1.1 x 1.4 cm Left Ovary: not seen 1. Uterus: anteverted, heterogeneous, 1.0cm fundal calcification, stable 2. Endometrium: wnl 3. Right Ovary: wnl 4. Left Ovary: not seen 5. Bilateral Adnexa: wnl 6. Posterior cul-de-sac: wnl IMPRESSION: Probable postmenopausal appearance of the uterus, limitations as described
== END | disposition home or self-care (01) ==
LOC: RADUSWWP 11:07
PROVIDERS: ATTEND Family Medicine
DX: R10.32 Left lower quadrant pain (principal)
CPT/HCPCS: 76830; 76856

== ENCOUNTER → 2022-04-07 | Outpatient (CLI) | payer BC ==
[2022-04-07 11:47] LABS: African American GFR (CKD) >90 (>60 ml/min/1.73 sqM); Blood Urea Nitrogen 16 mg/dL (7-17); Non-African American GFR(CKD) 88 (>60 ml/min/1.73 sqM)
--- NOTE | 2022-04-07 13:42 | CT ---
EXAMINATION TYPE: CT pelvis w con DATE OF EXAM: 04/07/2022 COMPARISON: HISTORY: LLQ pain x8 months CT DLP: 523.50 mGycm Automated exposure control for dose reduction was used. CONTRAST: Performed with IV Contrast, patient injected with 100 mL of Isovue 300. Contrast enhanced CT of the p jean was performed. GI contrast was administered. FINDINGS: There is right-sided uterine fundal calcified leiomyoma measuring approximately 1 cm. No additional l esions are seen of the uterus. No evidence for adnexal or ovarian mass. No free fluid seen. Urinary b ladder is unremarkable. Visualized gastrointestinal tract appear to be of normal caliber. Normal-appe aring appendix. Mild degenerative joint space narrowing of the hips. Vacuum disc noted at L3-4 and L4 -5 with associated central stenosis at each level. IMPRESSION: 1. Calcified leiomyoma of the uterus. 2. Vacuum disc with central stenosis at L3-4 and L4-5.
== END | disposition home or self-care (01) ==
LOC: RADCTMAIN 11:08
PROVIDERS: ATTEND Family Medicine
DX: D25.9 Leiomyoma of uterus, unspecified (principal); M48.061 Spinal stenosis, lumbar region without neurogenic claudication
CPT/HCPCS: 72193; 82565; 84520

== ENCOUNTER → 2022-09-15 | Outpatient (CLI) | payer BC ==
--- NOTE | 2022-09-16 07:20 | MM ---
Reason for Exam: Screening (asymptomatic). Last screening mammogram was performed 12 month(s) ago. Patient History: Menarche at age 11. First Full-Term at age 24. Postmenopausal. Patient has history of breast feeding. Estrogen for 6 months. Risk Values: Claudette 5 year model risk: 2.0%. NCI Lifetime model risk: 4.8%. Prior Study Comparison: 04/26/2019 Bilateral Screening Mammogram, [facility]. 08/15/2020 Bilateral Screening Mammogram, [facility]. 09/08/2021 Bilateral MG 3D screening mammo w/cad, [facility]. Tissue Density: The breast tissue is heterogeneously dense. This may lower the sensitivity of mammography. Findings: Analyzed By CAD. There is no suspicious group of microcalcifications or new suspicious mass in either breast. Overall Assessment: Negative, BI-RAD 1 Management: Screening Mammogram of both breasts in [address] [facility] will attempt to contact patient to return for supplemental views and ultrasound if indicated. Patient should continue monthly self-breast exams. A clinical breast exam by your physician is recommended on an annual basis. This exam should not preclude additional follow-up of suspicious palpable abnormalities. Note on Claudette scores and lifetime risk: 1. A Claudette score greater than 3% is considered moderate risk. If this is the case, consider specialist referral to assess eligibility for a risk reducing agent. 2. If overall lifetime risk for the development of breast cancer is 20% or higher, the patient may qualify for future screening with alternating mammogram and breast MRI. Electronically signed and approved by: Romeo Ballard DO
== END | disposition home or self-care (01) ==
LOC: RADMAMWWP 10:56
PROVIDERS: ATTEND Family Medicine
DX: Z12.31 Encounter for screening mammogram for malignant neoplasm of breast (principal); Z78.0 Asymptomatic menopausal state
CPT/HCPCS: 77063; 77067

== ENCOUNTER → 2023-08-08 | Outpatient (CLI) | payer BC ==
--- NOTE | 2023-08-08 17:42 | XR ---
EXAMINATION TYPE: XR chest 2V DATE OF EXAM: 08/08/2023 COMPARISON: 08/05/2016 HISTORY: 73-year-old female R05.9, cough TECHNIQUE: Frontal and lateral views FINDINGS: The cardiomediastinal silhouette, aorta, and pulmonary vasculature are within normal limits. Some str colton atelectasis at the left base. Otherwise, lungs and pleural spaces are clear. [facility] in the lower t horacic spine. IMPRESSION: Some strandy atelectasis at the left base. No acute cardiopulmonary process.
== END | disposition home or self-care (01) ==
LOC: RADXRMAIN 10:42
PROVIDERS: ATTEND Otolaryngology
DX: J98.11 Atelectasis (principal)
CPT/HCPCS: 71046

== ENCOUNTER → 2023-09-21 | Outpatient (CLI) | payer BC ==
--- NOTE | 2023-09-21 19:01 | MM ---
Reason for Exam: Screening (asymptomatic). Last mammogram was performed 1 year(s) and 1 month(s) ago. Patient History: Menarche at age 11. First Full-Term at age 24. Postmenopausal. Patient has history of breast feeding. Estrogen for 6 months. Risk Values: Claudette 5 year model risk: 2.0%. NCI Lifetime model risk: 4.5%. Prior Study Comparison: 08/15/2020 Bilateral Screening Mammogram, [facility]. 09/08/2021 Bilateral MG 3D screening mammo w/cad, [facility]. 09/15/2022 Bilateral MG 3D screening mammo w/cad, [facility]. Tissue Density: The breasts are heterogeneously dense, which may obscure small masses. Findings: Analyzed By CAD. There is no suspicious group of microcalcifications or new suspicious mass in either breast. Overall Assessment: Negative, BI-RAD 1 Management: Screening Mammogram of both breasts in 1 year. . Patient should continue monthly self-breast exams. A clinical breast exam by your physician is recommended on an annual basis. This exam should not preclude additional follow-up of suspicious palpable abnormalities. Note on Claudette scores and lifetime risk: 1. A Claudette score greater than 3% is considered moderate risk. If this is the case, consider specialist referral to assess eligibility for a risk reducing agent. 2. If overall lifetime risk for the development of breast cancer is 20% or higher, the patient may qualify for future screening with alternating mammogram and breast MRI. Electronically signed and approved by: Ad Randolph M.D. Radiologist
== END | disposition home or self-care (01) ==
LOC: RADMAMWWP 09:56
PROVIDERS: ATTEND Family Medicine
DX: Z12.31 Encounter for screening mammogram for malignant neoplasm of breast (principal); Z78.0 Asymptomatic menopausal state
CPT/HCPCS: 77063; 77067

== ENCOUNTER → 2024-10-10 | Outpatient (CLI) | payer MEDICARE, BC ==
--- NOTE | 2024-10-10 15:00 | MM ---
Reason for Exam: Screening (asymptomatic). Last screening mammogram was performed 12 month(s) ago. Patient History: Menarche at age 11. First Full-Term at age 24. Postmenopausal. Patient has history of breast feeding. Estrogen for 6 months. Risk Values: Claudette 5 year model risk: 2.0%. NCI Lifetime model risk: 4.2%. Prior Study Comparison: 09/08/2021 Bilateral MG 3D screening mammo w/cad, [facility]. 09/15/2022 Bilateral MG 3D screening mammo w/cad, [facility]. 09/21/2023 Bilateral MG 3D screening mammo w/cad, [facility]. Tissue Density: The breasts are heterogeneously dense, which may obscure small masses. Findings: Analyzed By CAD. Right breast: There is no suspicious group of microcalcifications or new suspicious mass. Left breast: There is no suspicious group of microcalcifications or new suspicious mass. Overall Assessment: Negative, BI-RAD 1 Management: Screening Mammogram of both breasts in [address] [facility] will attempt to contact patient to return for supplemental views and ultrasound if indicated. Patient should continue monthly self-breast exams. A clinical breast exam by your physician is recommended on an annual basis. This exam should not preclude additional follow-up of suspicious palpable abnormalities. Note on Claudette scores and lifetime risk: 1. A Claudette score greater than 3% is considered moderate risk. If this is the case, consider specialist referral to assess eligibility for a risk reducing agent. 2. If overall lifetime risk for the development of breast cancer is 20% or higher, the patient may qualify for future screening with alternating mammogram and breast MRI. [facility], , 10/10/2024 2:56 PM. Electronically signed and approved by: Romeo Ballard DO
== END | disposition home or self-care (01) ==
LOC: RADMAMWWP 14:27
PROVIDERS: ATTEND Family Medicine
DX: Z12.31 Encounter for screening mammogram for malignant neoplasm of breast (principal); R92.333 Mammographic heterogeneous density, bilateral breasts; Z78.0 Asymptomatic menopausal state
CPT/HCPCS: 77063; 77067